=== PATIENT | male | born 1965 | race Caucasian/White ===

== ENCOUNTER 2023-11-24 09:19 | Outpatient (CLI) | payer BC ==
[2023-11-24] MEDS ORDERED: Magnevist 469MG/ML 20 ML VIAL ONE (11:16)
== END 2023-11-24 09:20 | disposition home or self-care (01) ==
LOC: CSHMRI 09:19
PROVIDERS: ATTEND Psychiatry & Neurology Neurology
DX: M48.061 Spinal stenosis, lumbar region without neurogenic claudication (principal); M47.816 Spondylosis without myelopathy or radiculopathy, lumbar region; Q67.5 Congenital deformity of spine
CPT/HCPCS: 72158; A9579